=== PATIENT | male | born 1980 | race Hispanic/Latino ===

== ENCOUNTER 2016-12-21 19:12 | Emergency (ER) | payer SELFPAY ==
[~2016-12-21] VITALS: Ht 177.8 cm; Wt 93.2 kg
[2016-12-21 19:48] VITALS: BP 118/73; PULSE 54; RESP 16; O2SAT 98
[2016-12-21 20:17] LABS: BASOPHILS % (AUTO) 0.5 % (0-3); EOSINOPHILS % (AUTO) 6.6 % (0-5); MONOCYTES % (AUTO) 11.2 % (4-12); Mean Corpuscular Hemoglobin 29.2 pg (27.0-35.0); Mean Corpuscular Volume 86.7 fL (81-100); NEUTROPHILS % (AUTO) 46.2 % (40-74); Platelet Count 189 bil/L (150-400)
[2016-12-21 20:40] LABS: TROPONIN T < 0.010 ug/L (0.0-0.011)
[2016-12-21 20:49] LABS: Magnesium 2.2 mg/dL (1.6-2.6)
--- NOTE | 2016-12-21 21:02 | DRSVH ---
PROCEDURE: CT BRAIN WITHOUT CONTRAST ([id number]) INDICATIONS: headache, facial numbness TECHNIQUE: Noncontrast 4.5 mm thick angled axial sections acquired from the foramen magnum to the vertex, with c oronal reformats. COMPARISON: None. FINDINGS: Image quality: Excellent. CSF spaces: Basal cisterns are patent. No extra-axial fluid collections. Ventricles are normal in size and shape. Brain: No midline shift. No intracranial masses or hemorrhage. Arellano-white matter interface is norm al. Skull and face: Calvarium and visualized facial bones are intact, without suspicious lesions. Sinuses: Visualized sinuses demonstrate a mild appearance of frothy type mucosal thickening. There i s mild to moderate ethmoid mucosal thickening. IMPRESSION: 1. No acute intracranial process. 2. Minimal appearance of frothy like mucosal thickening in the right maxillary sinus. This could be a small focus of acute sinusitis. In addition, there is scattered ethmoid mucosal thickening. Dictated by: Connie Nye M.D. on 12/21/2016 at 20:59 Approved by: Connie Nye M.D. on 12/21/2016 at 21:00
--- NOTE | 2016-12-22 00:12 | ED.REPORT ---
HPI-Neurologic Deficit Date of Service Dec 22, 2016 ED Provider: Rashawn Prabhakar MD This is a 36 year old male presenting to the emergency department due to diffuse facial numbness that began two months ago. Patient describes numbness of the scalp diffusely, the face, left leg, and left arm. This is associated with a mild left sided facial droop. Symptoms have been persistent for the past two months. He denies any changes in symptoms today, this has not been worked up previously. He denies weakness, dizziness, weakness in extremities, lightheadedness, or change LOC. Nursing Notes Stated Complaint: FACIAL AND LEFT ARM NUMBNESS Chief Complaint: Neuro Symptoms/ Deficits Nursing Notes Reviewed: Yes Allergies: Coded Allergies: No Known Allergies (Unverified , 12/21/16) General Time Seen by Provider: 00:13 Chief Complaint Other Hx Obtained From: Patient Arrived By: Walk-in Sudden in Onset?: Yes Onset Occurred: More than a week ago... (2 months) Symptom Duration: Since onset Severity: Current: No pain currently Pertinent Negative: Pt denies other symptoms Recent Healthcare: No recent doctor visit, No recent hospitalization Similar Sx Previous: No Risk Factors NIH Stroke Scale Level of Consciousness: Alert and responsive (0) Ask Month & Age: Both questions right (0) Open/Close Eyes/Hand [employer]st: Performs both tasks (0) Horizontal EO Movements: None (0) Visual Anthony: No visual loss (0) Facial Palsy: Normal symmetry (0) Right Arm Motor Drift (10s): No drift 10 sec (0) Left Arm Motor Drift (10s): No drift 10 sec (0) Right Leg Motor Drift (5s): No drift 5 sec (0) Left Leg Motor Drift (5s): No drift 5 sec (0) Limb Ataxia FNF/Heel-Pabon: No ataxia (0) Sensation (Arms/Legs/Face): No sensory loss (0) Language Aphasia: No aphasia, normal (0) Dysarthria: No dysarthria, normal (0) Extinction/Inattention: No exctinct/inattent (0) NIHSS Score: 0 Time NIHSS Performed: 00:15 Date NIHSS Performed: Dec 22, 2016 Past Medical History Past Medical History Denies Past Surgical History Denies Review of Systems Constitutional: Denies: Chills, Fever Respiratory: Denies: Non-productive cough, Shortness of breath Cardiovascular: Denies: Chest pain GI: Denies: Nausea, Vomiting Neurologic: Reports: Numbness, Denies: Change LOC, Confusion, Lightheaded, Weakness Complete sys rev & neg: except as marked. Physical Exam Initial Vital Signs Vital Signs (First) Date Time Temp Pulse Resp B/P Pulse Ox O2 Delivery O2 Flow Rate FiO2 12/21/16 19:48 36.6 54 16 118/73 98 Room Air Initial VS: Reviewed, Vital signs normal ENT: Mucous membranes moist, Conjunctiva normal, No scleral icterus Neck: Supple, Non-tender, Full range of motion Abdomen / GI: Soft, Non-tender, No guarding, No rebound, No distention Extremities: Vascular intact, Neuro intact, No swelling, No tenderness Skin: Warm, Dry, No cyanosis Psychiatric: Mood/affect normal, Behavior normal, Normal thought content General/Constitutional: Awake, Alert Head / Eyes: Normocephalic, PERRL, EOMI, No nystagmus Respiratory / Chest: Breath sounds NL, Breath sounds = bilat, No respiratory distress, No rales, No rhonchi, No wheezing Cardiovascular: Heart rate NL, Regular rhythm, Heart sounds NL, Peripheral circulation NL Neurologic: Oriented X3, Speech NL, No motor deficits, No sensory deficits, CN II - XII intact, Reflexes equal bilat, Cerebellar NL subjective dysesthesia of face, left arm, and left leg Interpretation & Diagnostics Interpretation & Diagnostics: BRAIN CT IMPRESSION: 1. No acute intracranial process. 2. Minimal appearance of frothy like mucosal thickening in the right maxillary sinus. This could be a small focus of acute sinusitis. In addition, there is scattered ethmoid mucosal thickening. Dictated by: Connie Nye M.D. on 12/21/2016 at 20:59 Approved by: Connie Nye M.D. on 12/21/2016 at 21:00 Lab Results Interpretation Result Diagram: 12/21/16200912/21/162009 Test 12/21/16 20:10 White Blood Count 4.1th/mm3 (3.8-10.1) Red Blood Count 4.80mil/mm3 (4.40-5.80) Hemoglobin 14.0g/dL (13.8-17.2) Hematocrit 41.6% (41.0-50.0) Mean Corpuscular Volume 86.7fL (81-100) Mean Corpuscular Hemoglobin 29.2pg (27.0-35.0) Mean Corpuscular Hemoglobin Concent 33.7% (32.0-37.0) Red Cell Distribution Width 13.2% (12.3-15.4) Platelet Count 189bil/L (150-400) Neutrophils (%) (Auto) 46.2% (40-74) Lymphocytes (%) (Auto) 35.5% (14-46) Monocytes (%) (Auto) 11.2% (4-12) Eosinophils (%) (Auto) 6.6% (0-5) Basophils (%) (Auto) 0.5% (0-3) Sodium Level 137mEq/L (134-144) Potassium Level 4.6mEq/L (3.5-5.2) Chloride Level 101mEq/L (97-108) Carbon Dioxide Level 24mmol/L (18-29) Blood Urea Nitrogen 13mg/dL (6-20) Creatinine 0.95mg/dL (0.76-1.27) Estimat Glomerular Filtration Rate 94mL/min (>59) Glucose Level 106mg/dL (60-99) Calcium Level 9.2mg/dL (8.5-10.1) Magnesium Level 2.2mg/dL (1.6-2.6) Total Bilirubin 0.3mg/dL (0.0-1.2) Aspartate Amino Transf (AST/SGOT) 25U/L (0-50) Alanine Aminotransferase (ALT/SGPT) 19U/L (0-44) Alkaline Phosphatase 76U/L (25-150) Troponin T < 0.010ug/L (0.0-0.011) Total Protein 7.2g/dL (6.4-8.4) Albumin 4.2g/dL (3.4-5.0) Hold Pulido Top Tube Received (Received) Lab values outside NL range: no clinical significance. Re-Eval/Medical Decision Med Decision/Clinical Course 36-year-old male who has had several weeks now of diffuse dysesthesias of the scalp and left hand. This is been gradual and has not changed at all in the last couple of days. The impetus for his visit here was that his son became aware of it and recommended that he be evaluated. He has no classic symptoms of stroke. Labs and CT scan are negative. He will need an MRI to rule out MS. He is referred back to his primary provider, and Dr. Sharpe the on-call physician was notified of the need for further workup. Consultation : Referral / Consult Name: Rubin Sharpe DO Call Returned at: 00:31 [employer]: Accepts admit Note: PCP will follow up Counseled Regarding: Diagnosis, Lab results, Need for follow-up, When/why to return to ED Discharge & Departure Impression: Primary Impression: Numbness and tingling Disposition: Home Discharge Condition All VS Reviewed: Yes Condition: Stable Additional Instructions: I find no definite cause for your symptoms at this time. Your CT scan of your brain is normal. Neurologic are normal. This does not sound like a stroke because the distributions of the numbness and tingling is not what you would expect with a stroke. I was concerned that we need to make sure you do not have multiple sclerosis (MS). Talk to your regular doctor about getting a brain MRI. See your regular doctor or return here [facility] if you have any worsening symptoms. Contact me at [phone] between the hours of 9 PM and 6 AM the next couple nights if you have any concerns or questions. Referrals: Rubin Sharpe [facility] Scribe Attestation Portions of this note were transcribed by Catrachito Del Castillo. I, Dr. Prabhakar personally performed the history, physical exam and medical decision-making; I reviewed and confirmed the accuracy of the information in the transcribed note. Signed by: shila Lau. 12/21/2016, 06:00. Rashawn Prabhakar MD Dec 22, 2016 00:12 CATRACHITO DEL CAST[place]O Dec 22, 2016 00:19
[2016-12-22 01:01] VITALS: BP 123/48; PULSE 50; RESP 16; O2SAT 100
== END 2016-12-22 01:02 | disposition home or self-care (01) ==
LOC: SED 19:12
DX: R20.0 Anesthesia of skin (principal); R29.810 Facial weakness